=== PATIENT | female | born 1995 | race Caucasian/White ===

== ENCOUNTER 2016-06-25 14:49 | Emergency (ER) | payer MEDICAID, OTHER ==
[2016-06-25 15:09] VITALS: BP 118/64
--- NOTE | 2016-06-25 15:14 | ED Physician Chart ---
Chief Complaint/HPI - Patient Information Date Seen:: 06/25/16 Time Seen:: 15:14 Chief Complaint:: COUGH, NAUSEA, VOMITING STARTED 1 WEEK AGO. History of Present Illness:: This 20-year-old female presents with the one-week history of nausea, vomiting, cough and generalized weakness. She had a subjective fever earlier on in the course and his had chills and diaphoresis. Her cough is productive of clear to yellowish sputum and she hasn't coughed up any blood. The patient smokes marijuana on a regular basis and occasional cigarettes. She denies any chest pain, difficulty breathing or abdominal pain. Since past medical history is significant for childhood asthma and enlarged tonsils. There is no history of previous pneumonia, diabetes, hypertension or seizure disorder. Allergies:: Allergies Allergy/AdvReac Type Severity Reaction Status Date / Time amoxicillin AdvReac Verified 06/25/16 15:00 Penicillins [PCN] AdvReac Verified 06/25/16 15:00 Vitals:: Vital Signs - 8 hr 06/25/16 15:04 BP 118/64 Review of Systems - Review of Systems General/Constitutional: Fever, Chills, Weakness, Diaphoresis, Loss of appetite, Other (she is uncertain if she is lost any weight.) Skin: No skin lesions, No rash, No bruising Head: No headache, No light-headedness Eyes: No loss of vision, No pain, No diplopia ENT: No earache, No nasal drainage, Sore throat (patient has had intermittent sore throat over the past week.), No tinnitus Neck: No neck pain, No swelling, No stiffness, No mass noted Cardio Vascular: No chest pain, No palpitations, No orthopnea, No edema Pulmonary: No SOB, Cough, Sputum, No wheezing GI: Nausea, Vomiting, No diarrhea, No pain, No hematemesis G/U: No dysuria, No frequency, Hematuria Ticket Maker: No vaginal discharge Musculoskeletal: No bone or joint pain, No back pain, No muscle pain Hematopoietic: No bruising, No lymphadenopathy Allergic/Immuno: No urticaria, No angioedema Neurological: No syncope, No focal symptoms, Weakness, No paresthesia, No headache, No seizure, No dizziness, No confusion, No vertigo Past Medical History - Past Medical History Past Medical History: Asthma/COPD Family History: Diabetes Melitus Social History: Smoker, No Alcohol, Illicit Drug Use (smokes marijuana on a regular basis.), Single, Lives Alone, Employed Family Medical History - Family Member Mother Hx Family Diabetes: Yes Physical Exam - Physical Examination General/Constitutional: Awake, Well-developed, well-nourished, Alert, No distress, GCS 15, Non-toxic appearing, Ambulatory Head: Atraumatic Eyes: Lids, conjuctiva normal, PERRL, EOMI Other Eyes comments:: Jaundice or nystagmus. Skin: Nl inspection, No rash, No skin lesions, No ecchymosis, Well hydrated, No lymphadenopathy ENMT: External ears, nose nl, Nasal exam nl, Lips, teeth, gums nl Other ENMT comments:: Is moderate enlargement of both right and left tonsils with no associated exudate. There is also mild hyperemia of the posterior pharyngeal wall. Given no exudate was noted. Neck: Nontender, Full ROM w/o pain, No JVD, No nuchal rigidity, No mass, No stridor Respiratory: Nl effort/Exclusion, Clear to Auscultation, No Wheeze/Rhonchi/Rales Cardio Vascular: RRR, No murmur, gallop, rubs, NL S1 S2 Other Cardio Vascular comments:: Good peripheral pulses all 4 extremities. GI: No tenderness/rebounding/guarding, No organomegaly, No hernia, Nondistended , No mass/bruits, No McBurney tenderness : No CVA tenderness Extremities: No tenderness or effusion, Full ROM, normal strength in all extremities, No edema Neuro/Psych: Alert/oriented, DTR's symmetric, Normal sensory exam, Normal motor strength, Judgement/insight normal, Mood normal, Normal gait, No focal deficits Misc: Normal back, No paraspinal tenderness Labs/Radiology/EKG Results - Lab Results Results: Laboratory Tests 06/25/16 06/25/16 06/25/16 15:18 15:38 15:38 WBC 10.1 RBC 4.61 Hgb 13.7 Hct 40.7 MCV 88.3 MCH 29.7 MCHC Differential 33.6 RDW 12.6 Plt Count 276 MPV 8.4 Neutrophils % 58.7 Lymphocytes % 33.7 Monocytes % 5.4 Eosinophils % 1.6 Basophils % 0.6 Sodium 137 Potassium 4.4 Chloride 106 Carbon Dioxide 27.0 Anion Gap 8.4 BUN 12 Creatinine 0.8 Est GFR ( Amer) > 60.0 Est GFR (Non-Af Amer) > 60.0 BUN/Creatinine Ratio 15.0 Glucose 84 Calcium 9.5 Urine Test NEGATIVE The CBC showed no evidence of leukocytosis, anemia or platelet disorder. Metabolic panel was negative for any electrolyte abnormalities or renal dysfunction. test was negative. Single view chest x-ray was negative for cardiomegaly or CHF. There was no evidence of mediastinal whitening. No areas of pulmonary infiltrate her consolidation. Impression: no acute cardiopulmonary findings. Assessment - Assessment General Assessment: CASE SUMMARY: this 20-year-old female presents with a one-week history of fever, cough, nausea and vomiting. Her symptoms have currently resolved. She comes to the emergency department because her employer wanted her to get a work release note. On physical examination her vital signs were all within normal parameters. The physical examination was unremarkable. Laboratory studies showed no psychosis, anemia or electrolyte imbalance. The patient was given a letter stating she was medically cleared to return to work. MDM DDX for FEVER, COUGH, NAUSEA AND VOMITING: NOT Pneumonia based on exam and CXR. NOT Pneumothorax based of exam and CXR. NOT Appendicitis based on history and exam. NOT based on negative test. ED Septic Shock - . Is Septic Shock (SBP<90, OR Lactate>4 mmol\L) present?: No - <6hrs of presentation: Vital Signs: Vital Signs - 8 hr 06/25/16 15:04 BP 118/64 Reassessment (Disposition) - Reassessment Reassessment Condition:: Unchanged - Diagnosis Diagnosis:: VIRAL ILLNESS, RESOLVED The patient was medically cleared to return to work. She was advised to return to the emergency department if she has any recurrence of symptoms. Discharged in stable condition. ED Discharge Plan - Patient Disposition Admit/Discharge/Transfer: PT DISCHARGED HOME Condition at Disposition: Stable Instructions: Nausea, Adult, Upper Respiratory Infection, Adult Forms: Work Release Form
[2016-06-25 15:48] LABS: % BASOPHILS 0.6 % (0.0-2.0); % EOSINOPHILS 1.6 % (0.0-5.0); % LYMPHOCYTES 33.7 % (20.0-50.0); % MONOCYTES 5.4 % (2.0-10.0); % NEUTROPHILS 58.7 % (40.0-80.0); HEMATOCRIT 40.7 % (35.0-45.0); HEMOGLOBIN 13.7 gm/dL (11.7-15.5); MEAN CELL VOLUME 88.3 fl (81-100); MEAN CORPUSCULAR HEMOGLOBIN 29.7 pg (27.0-31.0); MEAN CORPUSCULAR HGB CONC 33.6 pg (28.0-36.0); MEAN PLATELET VOLUME 8.4 fl; NEUTROPHILE ABSOLUTE 5.9 Th/cmm (1.8-8.0); PLATELET COUNT 276 Th/cmm (150-400); RED BLOOD COUNT 4.61 Mil/cmm (3.80-5.10); RED CELL DISTRIBUTION WIDTH 12.6 % (11.5-20.0); WHITE BLOOD COUNT 10.1 Th/cmm (4.8-10.8)
[2016-06-25 15:59] LABS: ANION GAP 8.4 (7.0-16.0); BUN - UREA NITROGEN 12 mg/dL (7-25); CALCIUM SERUM 9.5 mg/dL (8.6-10.3); CHLORIDE 106 mEq/L (98-107); CREATININE - SERUM 0.8 mg/dL (0.6-1.2); GLUCOSE 84 mg/dL (70-105); POTASSIUM SERUM 4.4 mEq/L (3.5-5.1); SODIUM SERUM 137 mEq/L (136-145)
--- NOTE | 2016-06-26 09:38 | Diagnostic Imaging Report ---
CLINICAL INDICATION: Shortness of breath FINDINGS: Heart size is normal. No infiltrates or effusions. Atelectasis left lower lobe No bony thoracic abnormalities. IMPRESSION: Probable Atelectasis left lower lobe behind the heart. Early infiltrate cannot be excluded.
== END 2016-06-25 16:45 | disposition home or self-care (01) ==
LOC: ER 14:49
DX: B34.9 Viral infection, unspecified (principal); J44.9 Chronic obstructive pulmonary disease, unspecified; J45.909 Unspecified asthma, uncomplicated; F17.200 Nicotine dependence, unspecified, uncomplicated; Z88.1 Allergy status to other antibiotic agents; Z88.0 Allergy status to penicillin
CPT/HCPCS: 36415-UA; 71010-TC; 80048-TC; 81025-TC; 85025-TC